=== PATIENT | male | born 1940 | race Caucasian/White ===

== ENCOUNTER → 2016-11-21 | Outpatient (CLI) | payer OTHER | LOC: FIMAGING 13:20 | PROVIDERS: ATTEND Internal Medicine Cardiovascular Disease | DX: I77.810 Thoracic aortic ectasia (principal); E04.1 Nontoxic single thyroid nodule; I42.9 Cardiomyopathy, unspecified; Z94.0 Kidney transplant status ==

== ENCOUNTER → 2017-02-15 | Outpatient (CLI) | payer OTHER | LOC: FIMAGING 14:27 | PROVIDERS: ATTEND Internal Medicine Nephrology | DX: R29.818 Other symptoms and signs involving the nervous system (principal); Q61.2 Polycystic kidney, adult type ==

== ENCOUNTER → 2017-11-28 | Outpatient (CLI) | payer OTHER | LOC: FIMAGING 15:01 | PROVIDERS: ATTEND Internal Medicine | DX: J34.1 Cyst and mucocele of nose and nasal sinus (principal) ==